=== PATIENT | male | born 1935 | race Caucasian/White ===

== ENCOUNTER → 2022-10-17 | Outpatient (CLI) | payer OTHER, SELFPAY ==
--- NOTE | 2022-10-17 08:44 | NM_ITS ---
CLINICAL: 86-year-old male with history of primary prostate carcinoma. WHOLE BODY 99m Tc MDP RADIONUCLIDE BONE SCINTIGRAPHY COMPARISON: None available FINDINGS: Following the intravenous administration of 27.8 mCi of 99m Tc MDP, whole body bone images reveal: 1. Innumerable foci of increased radiopharmaceutical concentration are noted throughout the visualized axial skeleton as well as increased uptake noted in the bilateral proximal humeral metaphysis, the right proximal humeral diaphysis, the left mid-distal humeral diaphysis, the bilateral proximal femoral metaphysis, the left femoral proximal diaphysis. 2. Increased uptake is noted in the left knee, the bilateral wrist articulations, the upper cervical spine posteriorly on the right, the patellofemoral compartment of the right knee. 3. The remaining skeletal structures are scintigraphically unremarkable with the urinary bladder activity identified. Minimal radiopharmaceutical concentration is defined in the bilateral kidneys. The presumably asymptomatic right knee arthroplasty demonstrates increased uptake in the medial and lateral femoral compartment most consistent with postsurgical change. NM/Bone Scan Whole Body IMPRESSION: 1. Multiple foci of enhanced tracer visualized in the axial skeletal structures as well as focally apparent in the appendicular skeleton is commensurate with diffuse skeletal metastatic disease. 2. Degenerative arthrosis is appears expressed in the left knee, the bilateral wrist articulations, the cervical spine, the right knee in the absence of patellar hardware placement. Electronically Signed: Reno Rodriguez, at 9:50 EDT ,
== END | disposition home or self-care (01) ==
LOC: NM 08:43
PROVIDERS: PCP Family Medicine; Referring Provider Urology; Visit Provider Urology
DX: C61 Malignant neoplasm of prostate (principal)
CPT/HCPCS: 78306; A9503

== ENCOUNTER → 2022-10-21 | Outpatient (CLI) | payer OTHER, SELFPAY ==
--- NOTE | 2022-10-21 | PROSB_PTH ---
PATIENT: NGA MCKNIGHT LOC: [facility] U#:[id number] AGE/SX: 86/M ROOM: RE10/21/[address]: Dr. Jelani Nguyen MD : 1935 BED: DIS: 10/21/2022 SPEC #: [id number] RECD: 10/21/22 16:30 STATUS: HONORIO REHerminia #: [id number] ALFONSO: 10/21/22 00:[address]: Jelani Nguyen DEPT: SURGICAL PATHOLOGY RECD BY: Oni Corona ENTERED: 10/22/22 09:36 SP TYPE: PROST BX OTHR DR: Dr. Brian Chung MD Tissues: Prostate, NOS Procedures: Surgery Specimen Level IV HEADER OPERATION: Prostate biopsy PRE-OP DIAGNOSIS: Elevated PSA TISSUE SUBMITTED: Left base prostate MICROSCOPIC DIAGNOSIS Prostate, left base, core biopsy: Prostatic adenocarcinoma. [place] grade: 5+5=10 Number of cores involved: 2/2 Proportion of tissue involved: >95% Perineural invasion: Not identified. Greatest tumor length: 1.1 cm SJ:scarlett 10/23/2022 COMMENT Case has been reviewed in consultation with Dr. Strigner who concurs with the above diagnosis. IDC:AM MICROSCOPIC DESCRIPTION Slides are reviewed. GROSS DESCRIPTION Received in fixative is one container labeled with the patient's name and designated prostate biopsy. The specimen consists of two elongated fragments of light clements-white soft tissue each measuring 1.4 cm in length and 0.1 cm in diameter. The specimen is totally submitted in one cassette. / SJ:scarlett 10/22/2022 TC:0 CPT: 26639
== END | disposition home or self-care (01) ==
PROVIDERS: PCP Family Medicine; Visit Provider Urology
DX: R97.20 Elevated prostate specific antigen [PSA] (principal)
CPT/HCPCS: 88305

== ENCOUNTER → 2023-04-24 | Outpatient (CLI) | payer OTHER, SELFPAY ==
[2023-04-24 16:30] LABS: PSA,Total - Annual Screen 0.01 ng/mL (0.00-4.00)
== END | disposition home or self-care (01) ==
LOC: LAB 15:03
PROVIDERS: PCP Family Medicine; Referring Provider Urology; Visit Provider Urology
DX: C61 Malignant neoplasm of prostate (principal)
CPT/HCPCS: 36415; 84153; G0103

== ENCOUNTER → 2023-07-31 | Outpatient (CLI) | payer OTHER, SELFPAY ==
[2023-07-31 17:03] LABS: PSA,Total- Diagnostic < 0.01 ng/mL (0.0-4.0)
--- OUTSIDE RECORDS SUMMARY | 2023-07-31 17:30 | XMS RPT_ITS | CCD ---
Author Name Unknown Address [address] [place] [address] Organization [facility] Care Team Providers Care Tool Rental Technician Name Role Phone TITO TATE Primary Care Unavailable TITO TATE Attending Unavailable HEENA KING Consulting Unavailable TITO TATE Admitting Unavailable PROVIDER, UNKNOWN Consulting Unavailable PROVIDER, UNKNOWN Consulting Unavailable PROVIDER, UNKNOWN Consulting Unavailable Yuly SEWELL Admitting Unavailable Yuly SEWELL Primary Care Unavailable Yuly SEWELL Attending Unavailable HEENA KING Consulting Unavailable PROVIDER, UNKNOWN Consulting Unavailable PROVIDER, UNKNOWN Consulting Unavailable PROVIDER, UNKNOWN Consulting Unavailable Results Test Name Value Interpretation Reference Range Facil ity Encounters Encounter Date Encounter Type Care Provider Facility Start: 01-28-2023 End: 01-28-2023 ambulatory Yuly [facility] Start: 10-03-2022 End: 10-03-2022 ambulatory TITO TATE Joseyisel [facility] Procedures Date Procedure Procedure Detail Performing Clinician Start: 01-28-2023 PSA screening TITO REBOLLEDO Payers Date Payer Category Payer Unknown [id number] 1935 Unknown [id number] Medicare [id number] Unknown [id number] Unknown [id number] Summary Purpose Family History No Family History Records FoundNo Family History Records Found Advance Directives No Advanced Directives Records FoundNo Advanced Directives Records Found Additional Source Comments (unrecognized sect ion and content) No Status Records FoundNo Status Records Found INFORMATION SOURCE (unrecogn ized section and content) DATE CREATED AUTHOR AUTHOR'S ORGANIZ ATION 01/29/2023 [facility] FOR RECORDS PERTAINING TO PATIENTS WHO ARE OR HAVE BEEN ENROLLED IN A CHEMICAL DEPENDENCY/SUBSTANCEABUSE PROGRAM, SOME INFORMATION MAY BE OMITTED. This clinical summary was aggregated from multiple sources. Caution should be exercised in using it in the provision of clinical care. This summary normalizes information from multiple sources, and as a consequence, information in this document may materially change the coding, format and clinical context of patient data. In addition, data may be omitted in some cases. CLINICAL DECISIONS SHOULD BE BASED ON THE PRIMARY CLINICAL RECORDS. [facility] [employer], [facility]. provides no warranty or guarantee of the accuracy or completeness of information in this document.
== END | disposition home or self-care (01) ==
PROVIDERS: PCP Family Medicine; Referring Provider Urology; Visit Provider Urology
DX: C61 Malignant neoplasm of prostate (principal)
CPT/HCPCS: 36415; 84153

== ENCOUNTER → 2023-08-25 | Outpatient (CLI) | payer MEDICARE, SELFPAY ==
--- NOTE | 2023-08-25 15:34 | CT_ITS ---
STUDY: CT ABDOMEN AND PELVIS WITHOUT CONTRAST REASON FOR EXAM: Male, 87 years old. GROSS HEMATURIA. History of advanced prostate cancer. RADIATION DOSAGE (If Supplied By Facility): CTDIvol = ( 15.85 ) mGy, DLP = ( 871.36 ) mGycm TECHNIQUE: Transaxial images were obtained from the dome of the diaphragm to the symphysis pubis without oral contrast, and without intravenous contrast. Sagittal and coronal images were reconstructed. Individualized dose optimization techniques were used for this CT. COMPARISON: None. FINDINGS: The visualized lung bases are unremarkable. The visualized portions of the heart are within normal limits. Normal liver. There are multiple gallstones. Normal spleen. Normal pancreas. Normal bilateral adrenal glands. Normal right kidney. Normal left kidney. No definite renal or ureteral stones are seen. There is no hydronephrosis on either side. Evaluation of the GI tract is limited by absence of oral contrast. Cannot exclude stomach wall thickening. No dilated loops of bowel or evidence for obstruction. Cannot exclude segmental thickening of the sarah of the small or large bowel. Cannot exclude enteritis or colitis. Moderate diffuse fecal retention. Diverticulosis without definite diverticulitis. Appendix within normal limits. There is diffuse atherosclerotic calcification of the abdominal aorta, without a demonstrated aneurysm. Normal inferior vena cava. Normal retroperitoneum. Abnormal contour base of the bladder. Bladder wall thickening is possible. Abnormal appearance of the prostate which is not enlarged but appears displaced to the left. Question any previous surgery. Previous inguinal hernia repair on the left. Heterogeneous appearance of the visualized spine, most of which is from degenerative disease but metastatic prostate cancer is also likely. Sclerotic densities in both posterior iliac crest also consistent with prostate cancer. CT/Abdomen/Pelvis without Cont IMPRESSION: Significantly limited by the absence of IV contrast. Bladder wall thickening and abnormalities of the base of the bladder are not excluded. Kidneys are unremarkable. Cholelithiasis. Metastatic prostate cancer to the skeletal structures. Electronically Signed: Jeison Pak MD at 16:38 EDT ,
== END | disposition home or self-care (01) ==
PROVIDERS: PCP Family Medicine; Referring Provider Urology; Visit Provider Urology
DX: R31.0 Gross hematuria (principal)
CPT/HCPCS: 74176

== ENCOUNTER 2023-09-30 14:48 | Observation (INO) | payer MEDICARE, SELFPAY ==
--- NOTE | 2023-09-22 13:37 | EKG12_ITS ---
Test Reason : PRE OP Blood Pressure : / mmHG Vent. Rate : 079 BPM Atrial Rate : 079 BPM P-R Int : 198 ms QRS Dur : 128 ms QT Int : 440 ms P-R-T Axes : 043 -10 025 degrees QTc Int : 504 ms Sinus rhythm with frequent Premature ventricular complexes Right bundle branch block Abnormal ECG Confirmed by TON KIDD, DIEGO ([id number]), editor dictionary KENROY RAYMUNDO ([id number]) on 09/24/2023 11:40:03 AM Referred By: Jelani Nguyen Confirmed By:DIEGO CAMILO MD
[2023-09-22 14:23] LABS: Hematocrit 43.3 % (40-54); Hemoglobin 14.3 g/dL (13.0-16.5); Mean Corpuscular Hgb 28.4 pg (27.0-32.0); Mean Corpuscular Volume 86.1 fL (80-94); Mean Platelet Vol. 9.4 fl (6.2-12.0); Platelet Count 265 K/mm3 (150-450); RBC Distribution Width CV 14.5 % (11.6-14.6); RBC Distribution Width SD 45.4 fl (35.1-43.9); Red Blood Count 5.03 M/mm3 (4.6-6.2); White Blood Count 8.5 K/mm3 (4.4-11.0)
[2023-09-22 14:33] LABS: Prothrombin Time (Protime)PT. 13.5 SECONDS (11.7-14.9)
[2023-09-22 14:34] LABS: Partial Thromboplast Time 23.6 Seconds (24.1-36.2)
[2023-09-22 14:41] LABS: AST(SGOT) 17 U/L (15-37); Alanine Aminotransfer ALT/SGPT 12 U/L (16-61); Albumin, Serum 3.4 g/dL (3.2-5.0); Alkaline Phosphatase 109 U/L (45-117); Bilirubin, Direct 0.17 mg/dL (0.00-0.30); Globulin 3.9 g/dL (2.2-4.2); Protein, Total 7.3 g/dL (6.4-8.2)
[2023-09-30] VITALS (10 sets, daily range): BP systolic 114–151; BP diastolic 63–87; PULSE 60–98; RESP 16–18; TEMP 36.1–37; O2SAT 95–99; BMI 34.4; BMI 34.5
[2023-09-30] MEDS: Lactated Ringers 1,000 ML 15 ML IV (12:14)
[2023-09-30] MEDS: Cefazolin 2 GM in 0.9% Normal Saline (100mL Bag) 100 ML IV (13:31)
--- NOTE | 2023-09-30 14:10 | BLB_PTH ---
PATIENT: NGA MCKNIGHT LOC: [facility] U#:[id number] AGE/SX: 87/M ROOM: MA311 RE09/30/[address]: Dr. Jelani Nguyen MD : 1935 BED: 1 DIS: 10/02/2023 SPEC #: [id number] RECD: 09/30/23 17:03 STATUS: HONORIO FAJARDO #: [id number] ALFONSO: 09/30/23 14:[address]: Jelani Nguyen DEPT: SURGICAL PATHOLOGY RECD BY: Karla Moon ENTERED: 10/01/23 08:27 SP TYPE: TURB OTHR DR: Dr. Brian Chung MD Tissues: A - Urinary bladder, NOS B - Urinary bladder, NOS Procedures: Surgery Specimen Level IV Surgery Specimen Level V HEADER OPERATION: Transurethral resection of bladder tumor with Olympus PRE-OP DIAGNOSIS: Gross hematuria and bladder tumor TISSUE SUBMITTED: A- Bladder tumor, B- Deeper resection tumor MICROSCOPIC DIAGNOSIS A. Bladder tumor, transurethral resection: Papillary urothelial carcinoma. B. Deeper resection tumor, transurethral resection: Papillary urothelial carcinoma. See cancer summary in the comment section. Hermelinda 10/02/2023 COMMENT BLADDER CANCER (TUR) SUMMARY (specimen A&B). Procedure: Transurethral resection of bladder tumor (TURBT) Tumor site: Not specified Histologic type: Papillary urothelial carcinoma, invasive Associated epithelial lesions: None identified Histologic grade: High grade (2-3) Tumor configuration: Papillary Muscularis propria presence: muscularis propria (detrusor muscle) present and free of tumor Lymphvascular invasion: not identified Tumor extension: Tumor invades the lamina propria (subepithelial connective tissue). Additional pathologic findings: - Chronic inflammation. - Focal area of ulceration with associated acute inflammation. PATHOLOGIC STAGE: pT1 pNx pMx The above summary is in compliance with [employer] [place] [employer] (CAP) Cancer Protocols Checklist and [place] Joint Committee on Cancer (AJCC), Staging Manual, 8th Ed. MICROSCOPIC DESCRIPTION Slides are reviewed. GROSS DESCRIPTION A. Received in fixative is one container labeled with the patient's name and designated Bladder tumor tissue. The specimen consists of multiple irregular fragments of brown soft tissue that in aggregate measure 4.0 x 4.0 x 3.0 cm. The specimen is totally submitted in twenty cassettes. B. Received in fixative is one container labeled with the patient's name and designated Deeper resection tissue. The specimen consists of multiple irregular fragments of clements-brown soft tissue that in aggregate measure 3.0 x 2.5 x 0.3 cm. The specimen is totally submitted in one cassette. Hermelinda 10/01/23 TC:0 CPT:[id number]
--- NOTE | 2023-09-30 14:53 | PCM.HP.STD ---
HPI - General General Date of Service: 09/30/23 HPI Narrative NGA MCKNIGHT, is a 87 M who presents for a transurethral resection of the very large bladder tumor bladder cancer. [facility] Medical History (Updated 09/16/23 @ 09:08 by Stephanie Cobian) Ambulates with cane Arthritis Cancer Easy bruising History of edema Hx of skin cancer, basal cell Hypertension Leg cramps Non-smoker Shortness of breath on exertion Wears glasses Wears hearing aid Home Medications enzalutamide 40 mg tablet (Xtandi) 160 mg PO DAILY 09/16/23 [History Last Taken 09/30/23] lisinopril 10 mg tablet 10 mg PO DAILY 09/16/23 [History Last Taken 09/30/23] megestrol 20 mg tablet 20 mg PO BID PRN PRN HOT FLASHES 09/16/23 [History Last Taken 09/30/23] fmwyunlhqtfd-rjpxwcpg-lalfpl tablet (A Thru Z High Potency tablet) 1 tab PO DAILY 09/16/23 [History Last Taken Unknown] ciprofloxacin HCl 500 mg tablet (Cipro) 500 mg PO BID #10 tabs 09/30/23 [Rx Last Taken Unknown] Allergy/AdvReac Type Severity Reaction Status Date / Time No Known Allergies Allergy Verified 09/30/23 12:09 Surgical History (Updated 09/16/23 @ 09:08 by Stephanie Cobian) History of back surgery Hx of inguinal hernia repair Hx of total knee replacement Social History Smoking Status: Never smoker Vital Signs Vital Signs Vital Signs: 09/30/23 12:09 09/30/23 12:09 Temperature 97.0 F L Temperature Source Temporal Pulse Rate 79 Respiratory Rate 18 Respiratory Pattern Normal Blood Pressure 138/83 H Blood Pressure Mean 101 Blood Pressure Source Monitor Blood Pressure Position Semi-Fowlers Blood Pressure Location Left Arm Pulse Ox 99 Oxygen Delivery Method Room Air Weight Weight: 109 kg Body Mass Index (BMI) 34.4 Results Lab / Micro Data 09/22/23 13:52
--- NOTE | 2023-09-30 14:53 | PCM.DC ---
Discharge Instructions Diet Discharge Diet: No restrictions Activity Discharge Activity: Return to Normal Activity and May Not Drive (while taking narcotic pain medications.) Dressing / Incision Call your doctor if you observe: Fever of 101 or Higher Catheter: Rea to leg bag and Rea to large bag Drain: Gustavus Follow Up Care Please Follow Up With: Jelani Nguyen MD When: Call [phone] for an appointment Test Results: Test results from this visit will be discussed in further detail at your follow-up appointment, if applicable. Discharge Plan Admission Primary Reason for Your Visit: Resection of bladder tumor Attending Provider: Jelani Nguyen Primary Care Provider: Brian Chung Discharge Orders/Prescriptions Prescriptions: New ciprofloxacin HCl [Cipro] 500 mg tablet 500 mg PO BID Qty: 10 0RF Continued megestrol 20 mg tablet 20 mg PO BID PRN PRN (Reason: HOT FLASHES) lisinopril 10 mg tablet 10 mg PO DAILY Held Xtandi 40 mg tablet 160 mg PO DAILY Hold Instructions: Resume on 10/14/23. A Thru Z High Potency Tablet 1 tab PO DAILY Hold Instructions: Resume on 10/14/23. Referrals / Follow Up: Brian Chung MD [Primary Care Provider] - Disposition Disposition (needs filled in before D/C Order can be placed): Home, Self Care
--- NOTE | 2023-09-30 14:54 | PCM.OPRPT ---
Report of Operation Date of Procedure: 09/30/23 Pre-Operative Diagnosis: Large bladder tumor Post-Operative Diagnosis: Large bladder tumor cancer Surgery/Procedure Performed:: Transurethral section of the very large bladder tumor Description of Surgical Findings:: Patient presented to the hospital for treatment of a tumor that was found in the bladder with a very large bladder tumor. Patient understands is possible it may not be able to resect the entire tumor. Patient also understands is possible that the patient may need multiple procedures or more invasive procedures to cure him of this cancer. Patient was taken back to the operating room after smooth induction of anesthesia the patient was placed supine on the table. The patient was placed in dorsolithotomy position. The urethra and genitals prepped and draped in usual sterile fashion. I went into the bladder with a 30 degree lens and a cystoscope was performed and identified the tumor the tumors which was about 7 centimeters in size and occupying mostly the right trigone of the bladder. I then switched over to the 70 degree lens and inspected the rest of the bladder with a 70 degree lens to make sure there is no other tumors in the bladder and to identify all the tumor locations. The right and left ureteral orifice were identified. The tumor was involved in the right ureteral orifice. I then placed the Olympus bipolar resectoscope with a large loop into the bladder. I then started resected the tumor and started superficially shaving small little pieces working my way to the base of the tumor. As I went along I then cauterize any bleeders that were encountered during the resection. The tumor pieces were then flushed out of the bladder and continued resecting the tumor until finally I got down to the base of the tumor and the muscle of the bladder was then identified a small little bit of muscle was taken with the resection. The Ellik was used then to evacuate all the tumor pieces out of the bladder. I then cauterized extensively the tumor base and also circumferentially around where the tumor was. Again we made sure to evacuate all the pieces out the bladder. I made sure there was no more bleeding from the base of the bladder and then over the tumor pieces were then evacuated out and sent off as a specimen. We then placed the catheter in the bladder and the patient was taken back to the PACU in stable condition. Surgeon: Jelani Nguyen Type of Anesthesia: General Drains: 22fr 3 way Admit VTE Documentation VTE Present on Admission: No VTE Mechan Device Prophylaxis: SCD's VTE Pharm Prophylaxis ordered?: No
[2023-09-30] MEDS: Ketorolac 15 MG/ML Vial IV (15:27)
[2023-09-30] MEDS: 0.9% Normal Saline (1000mL) 1,000 ML 100 ML IV (16:38)
[2023-09-30] MEDS: Docusate Sodium 100 MG Capsule 200 MG PO (20:44)
[2023-09-30] MEDS: Ciprofloxacin 400 MG/200 ML BAG 200 MG IV (20:47)
[2023-10-01] VITALS (8 sets, daily range): BP systolic 125–145; BP diastolic 66–76; PULSE 72–90; RESP 16–20; TEMP 36.6–37.7; O2SAT 98–99; BMI 34.5
[2023-10-01] MEDS: 0.9% Normal Saline (1000mL) 1,000 ML 100 ML IV (02:49)
[2023-10-01 07:28] LABS: Hematocrit 35.9 % (40-54); Hemoglobin 11.9 g/dL (13.0-16.5); Mean Corp Hgb Conc 33.1 g/dL (32-36); Mean Corpuscular Volume 87.3 fL (80-94); Mean Platelet Vol. 9.8 fl (6.2-12.0); Platelet Count 214 K/mm3 (150-450); RBC Distribution Width CV 14.9 % (11.6-14.6); RBC Distribution Width SD 47.5 fl (35.1-43.9); Red Blood Count 4.11 M/mm3 (4.6-6.2); White Blood Count 8.1 K/mm3 (4.4-11.0)
--- NOTE | 2023-10-01 07:28 | PCM.PN.GU ---
Subjective Subjective 87-year-old male status post resection of a very large bladder cancer. Urine today is nice and clear we can remove the catheter for voiding trial and he can go home later today after he is able to urinate Objective Data Objective Data Vital Signs: Vital Signs Temp Pulse Resp BP Pulse Ox O2 Del Method 97.9 F 72 18 135/76 H 98 Room Air 10/01/23 05:05 10/01/23 05:05 10/01/23 05:05 10/01/23 05:05 10/01/23 05:05 10/01/23 05:05 Oxygen Delivery Method Room Air Weight: 109 kg Body Mass Index (BMI) 34.4 Intake & Output: Intake and Output for Last 24 Hours 09/29/23 09/30/23 10/01/23 23:59 23:59 23:59 Intake Total 1310 / 1310 1000 / 1000 Output Total 0 / 0 Balance 1310 / 1310 1000 / 1000 Lab / Micro Data 09/22/23 13:52 10/01/23 06:26
[2023-10-01 08:11] LABS: Anion Gap 4 (5-15); BUN 16 mg/dL (7-18); BUN/Creat Ratio 16.3 RATIO (10-20); Calcium,Total 8.3 mg/dL (8.5-10.1); Chloride 109 mmol/L (98-107); Creatinine, Serum 0.98 mg/dL (0.70-1.30); EST Glomerular Filtration Rate 77 mL/min (>60); Est Glom Filt Rate - Afr Amer 93 mL/min (>60); Estimated Creatinine Clearance 66.89 ml/min; Glucose 123 mg/dL (74-106); Potassium 3.9 mmol/L (3.5-5.1); Sodium Level 138 mmol/L (136-145)
--- NOTE | 2023-10-01 09:08 | CASEMGMT ---
Addendum entered by Tresa Caceres 10/01/23 10:26: Nurse clarified that pt will not plan to go home with a catheter. BERTHA RAYMOND into pt room and updated pt and cg. Original Note: BERTHA RAYMOND Assessment: Face to Face with pt for initial transition planning/care coordination assessment. BERTAH RAYMOND introduced self and role at [facility], pt voices understanding and consents to assessment. Pt is A&O x4 and answers all questions appropriately at this time. Pt deferred assessment questions to caregiver who is present in room. Care providers, pharmacy, and demographics verified/updated. Admitting Dx: transurethral resection of bladder tumor PCP:Brian Chung; [facility] Specialists:elizabeth Nguyen Pharmacy: [facility] Insurance: [employer] [facility] Prescription Benefit: yes LNOK: brea Packer Living Arrangements: Pt lives with cg in a split level home with a ramp to enter through the back to get to the part of the home that the patient lives in. Pt then has 4 steps to get to the bathroom with a rail from his living space. Pt is I in ADL's and cg does grocery shopping, meals and laundry. Cg reports pt is weak in the legs. Pt and cg decline need for any home therapy. Pt denies concerns at home. Transportation: Pt can drive but cg transports pt. DME:BSC, cane, grab bars, FWW, w/c, transport w/c. Pt uses cane currently to ambulate. HHC/SNF: Pt has had [facility] in the past and denies SNF stays. Pt states no concerns with going home at time of dc. Pt and cg aware that a jones is for homegoing according to dc instructions. Cg reports feeling comfortable with this. Pt states no further concerns/needs. CM to follow. Advised pt to ask CM if any further question/concerns/needs arise, voices understanding. Pt Goal: Home Plan: Home Leticia STONE CM
[2023-10-01] MEDS: Ciprofloxacin 400 MG/200 ML BAG 200 MG IV (09:36)
[2023-10-01] MEDS: Docusate Sodium 100 MG Capsule 200 MG PO ×2 (09:36→21:53)
[2023-10-01] MEDS: Tolterodine Tartrate 2 MG CAP.SA PO (12:18)
[2023-10-01] MEDS: Tamsulosin HCl 0.4 MG Capsule PO ×2 (12:57→21:53)
--- NOTE | 2023-10-01 15:41 | CASEMGMT ---
Met with patient and his to complete HUSTON form. HUSTON form explained to?both who voiced understanding and signed form. Original form placed in pt?s chart and copy provided to?patient. Chloe Gonzales, Discharge Planning Asst
[2023-10-01] MEDS: Megestrol 40 MG Tablet 20 MG PO (18:06)
[2023-10-01] MEDS: Acetaminophen 325 MG Tablet 650 MG PO (18:39)
[2023-10-02 02:34] VITALS: BP 134/73; PULSE 60; RESP 16; TEMP 36.4; O2SAT 98
[2023-10-02 07:32] LABS: Hemoglobin 11.5 g/dL (13.0-16.5); Mean Corp Hgb Conc 32.9 g/dL (32-36); Mean Corpuscular Hgb 28.8 pg (27.0-32.0); Mean Corpuscular Volume 87.5 fL (80-94); Mean Platelet Vol. 9.5 fl (6.2-12.0); Platelet Count 200 K/mm3 (150-450); RBC Distribution Width CV 14.6 % (11.6-14.6); White Blood Count 6.5 K/mm3 (4.4-11.0)
--- NOTE | 2023-10-02 08:30 | PCM.PN.BLA ---
Progress Note Status post resection of large bladder cancer, Rea catheter is in place we will go home today with the Rea.
[2023-10-02 09:35] VITALS: BP 111/64; PULSE 71; RESP 18; TEMP 36.4; O2SAT 99
[2023-10-02] MEDS: Megestrol 40 MG Tablet 20 MG PO (09:40)
[2023-10-02] MEDS: Tamsulosin HCl 0.4 MG Capsule PO (09:40)
[2023-10-02] MEDS: Lisinopril 10 MG Tablet PO (09:40)
[2023-10-02] MEDS: Docusate Sodium 100 MG Capsule 200 MG PO (09:40)
== END 2023-10-02 11:32 | disposition home or self-care (01) | DRG 670 ==
LOC: SDC 17:47 → MS3 10-01 01:17
PROVIDERS: Anesthesiology; Admitting Provider Urology; PCP Family Medicine; Referring Provider Urology; Visit Provider Urology
PROC: 0TBB8ZZ Excision of Bladder, Via Natural or Artificial Opening Endoscopic (ICD-10-PCS; CPT 52240; principal; 2023-09-30 14:00)
DX: C67.9 Malignant neoplasm of bladder, unspecified (principal); I10 Essential (primary) hypertension; Z79.899 Other long term (current) drug therapy
CPT/HCPCS: 52240; 00912; 36415; 80048; 80076; 85027; 85610; 85730; 88305; 88307; 93005; 96361; 96365; 96366; 96375; 99221; J7030; J7120; G0378; J0744; J2405

== ENCOUNTER → 2023-12-08 | Outpatient (CLI) | payer MEDICARE, SELFPAY ==
[2023-12-08 11:13] LABS: PSA,Total- Diagnostic < 0.01 ng/mL (0.0-4.0)
== END | disposition home or self-care (01) ==
LOC: LAB 10:10
PROVIDERS: PCP Family Medicine; Referring Provider Nurse Practitioner; Visit Provider Nurse Practitioner
DX: C61 Malignant neoplasm of prostate (principal)
CPT/HCPCS: 36415; 84153